=== PATIENT | male | born 1980 | race Caucasian/White ===

== ENCOUNTER 2018-04-23 07:46 | Outpatient (CLI) | payer MEDICAID | END 2018-04-23 07:47 | disposition home or self-care (01) | LOC: C.PAT 07:46 | DX: M12.532 Traumatic arthropathy, left wrist (principal); M85.432 Solitary bone cyst, left ulna and radius; M85.442 Solitary bone cyst, left hand ==

== ENCOUNTER 2018-05-06 06:19 | Day surgery (SDC) | payer MEDICAID ==
[2018-04-23 07:58] VITALS: BMI 30.4
[2018-05-06] MEDS ORDERED: Bacitracin 500 Units/gm Oint Foilpak UD ONE (07:40)
[2018-05-06] MEDS ORDERED: ceFAZolin 1 gm in NS 1 GM/100 ML BAG IVPB ONE ×2 (07:40→08:00)
[2018-05-06] MEDS ORDERED: Bupivacaine 0.25% 20 ML INJ IJ ONE (07:41)
[2018-05-06] MEDS ORDERED: Midazolam 2 MG/2 ML VIAL ONE (07:54)
[2018-05-06] MEDS ORDERED: Propofol 10 mg/ml Inj (20 ML) ONE ×2 (07:54→10:43)
[2018-05-06] MEDS ORDERED: Rocuronium 10 mg/ml (5 ml) ONE ×2 (09:24→10:39)
[2018-05-06] MEDS ORDERED: Neostigmine 1:1000 (1 mg/ml) Inj ONE (10:42)
--- NOTE | 2018-05-06 11:06 | PCM.SURG1 ---
Surgeon's Initial Post Op Note - Surgeon's Notes Surgeon: Dr. Short Production Laborer: Dr. Sabas Velasquez PGY-4 Type of Anesthesia: General Endo Pre-Operative Diagnosis: Left SLAC wrist Operative Findings: see operative report Post-Operative Diagnosis: Left SLAC wrist Operation Performed: 1) Left proximal row carpectomy 2) Bone graft for endochondroma 3) PIN neurectomy Specimen/Specimens Removed: carpal bones Estimated Blood Loss: EBL {In ML}: 10 Blood Products Given: N/A Drains Used: No Drains Post-Op Condition: Good Date of Surgery/Procedure: 05/06/18 Time of Surgery/Procedure: 11:06
[2018-05-06] MEDS: HYDROmorphone 0.5 mg/0.5 ml ISec IVP PRN ×6 (11:12→12:15)
[2018-05-06] MEDS ORDERED: HYDROmorphone 0.5 mg/0.5 ml ISec ONE (11:15)
[2018-05-06 11:26] VITALS: TEMP 98
[2018-05-06] MEDS ORDERED: HYDROmorphone 0.5 mg/0.5 ml ISec IVP PRN (12:12)
[2018-05-06] MEDS ORDERED: Ropivacaine 0.5% PF (20 ml) inj INJ ONE (12:47)
--- NOTE | 2018-05-06 13:02 | PCM.ANESB1 ---
Interscalene Block - Brachial Plexus Date of Procedure: 05/06/18 Anesthesiologist: Jeff Bernard Pre-Procedure Diagnosis: acute postoperative pain Post-Procedure Diagnosis: acute postoperative pain Procedure Performed: Interscalene Block of Brachial Plexus Left - Procedure Interscalene Block of Brachial Plexus: This procedure was explained to the patient that it is for post-operative pain management. Consent was obtained after a thorough discussion with the patient regarding the benefits and possible complications of local anesthetic block of the Brachial Plexus at the supraclavicular area Time out was held with the circulating nurse to confirm the correct surgery and appropriate block. After applying Oxygen by nasal cannula, the patient's head was gently rotated away f rom the _LEFT_operative shoulder and the anterior scalene groove was carefully palpated. The ultrasound transducer was then applied to the skin in the transverse plane and the brachial plexus was visualized lateral to supraclavicular artery After identification,the anterior lateral portion of the neck was prepped with Betadine solution three times and Lidocaine 1% was inj ected subcutaneously for topical analgesia. At this point, a # 22 gauge Stimuplex 2 inches insulated needle was inserted aboved the clavicle and directed in a caudal and midline direction. The needle was inserted lateral to the ultrasound transducer in-plane towards the brachial plexus in a [id number] direction. Needle advancement was performed carefully under direct ultrasound visualization. Nerve stimulator was used and twitched of the affected extremity including the hand brachialis muscles, biceps and the deltoid was obtained at a current of 0.6MA, lost at 0.48ma. After repeated negative aspiration,___5__cc of_0.5% ropivicaine were injected and this was followed with __15cc of __0.5_% _ropivicaine. Under ultrasound guidance the local anesthetics were observed surrounding the roots of the brachial plexus. The needle was removed intact and sterile dressing was applied. The patient had stable vital signs, was conscious and in no apparent distress. The patient tolerated the supraclavicular block of the bracheal plexus well with stable, was awake throughout and had no complaints of pain or anesthesia. arabella ated procedure well.
[2018-05-06 14:07] VITALS: PULSE 72; RESP 16; O2SAT 96
[2018-05-06 14:24] VITALS: BP 125/72
--- NOTE | 2018-05-09 19:49 | OP ---
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 PROCEDURES: 1. Left proximal row carpectomy. 2. 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 3. Neurectomy of posterior interosseous nerve. SURGEON: Melissa Short MD ELECTRIC BATH ATTENDANT: Nadine Judd M.D SECOND ELECTRIC BATH ATTENDANT: Reba Obregon, PGY-4 TYPE OF ANESTHESIA: General endotracheal anesthesia. SPECIMENS: Carpal bones, which were removed, were sent to pathology. ESTIMATED BLOOD LOSS: 10 mL. TOURNIQUET TIME: 1 hour and 55 minutes. COUNTS: Lap, sponge, and needle counts were correct at the end of the case. CONDITION: The patient was stable upon discharge to recovery. INDICATIONS FOR SURGERY: The patient is a 38-year-old man with severe wrist pain from previous injuries including scapholunate ligament that was then reconstructed. He had progressive advancement collapse with evidence of radial styloid osteophytes and severe pain, destruction of the lunate and scaphoid. The plan was for a proximal row carpectomy. DESCRIPTION OF PROCEDURE: Surgery is as follows. The patient was identified in the holding area. The left arm was marked. He was then brought to the operating room and laid supine on the operating room table. Once general anesthesia was induced, the patient's left arm was placed in a tourniquet and then prepped and draped in usual sterile fashion. Using an Esmarch, the arm was exsanguinated and tourniquet inflated to 250 mm of pressure for a total of 115 minutes. Beginning with an incision on the dorsal wrist, approximately 5 cm in length, the incision was taken down through the skin and dermis. The EPL tendon was identified and preserved. The carpal retinaculum between the third and fourth compartment was opened in order to expose the carpal bones. The intraoperative fluoroscopy was used to help guide the location of the lunate and scaphoid bones. 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 A U-based proximally based flap of the carpal retinaculum, dorsal capsule was created and elevated in order to expose the capitate, the lunate, and the scaphoid bases. The triquetral bone, the lunate, and the scaphoid bones were all removed using a combination of rongeurs and osteotomes until the area was cleared. The PIN nerve was noted running along the fourth dorsal compartment and was resected back approximately 2 cm proximal to the wrist crease. The specimen was sent as a separate specimen. The scaphoid was completely removed in pieces as well. Intraoperative fluoroscopy was then used to locate the wrist dorsally volarly, radial and ulnar. Some of the 2 mm portion of the radial styloid on the dorsal surface was then removed in order to prevent impaction of the trapezium against the radial styloid. Once the position was deemed satisfactory, one 0.45 K-wire was placed across the capitate into the K-wire to position the capitate in the lunate facet. The incision was then irrigated and again, any area of residual bone was removed. The radial styloid under the lunate facet had a fairly large enchondroma, a separate incision was made in the dorsal aspect of the radius in order to access the enchondroma. This was cleaned out and then packed with bone graft from the carpal bone segments. Under fluoroscopy, the enchondroma was morcelled and less visible after bone grafting was performed. The wounds were then closed. The dorsal capsule was repaired using 4-0 Vicryl. The tourniquet was deflated and pressure held for 5 minutes. Any bleeding was controlled with electrocautery. K-wire was buried under the skin. The incision was then closed in layers using 3-0 Monocryl to the deep dermis followed by 4-0 Monocryl running subcuticular and lastly Dermabond. The patient was then placed in a volar splint with the wrist in neutral and secured in place with an Balaji wrap. The patient tolerated the procedure well, was extubated on the table, transferred to a stretcher and brought to the recovery room. In the recovery room, he underwent a supraclavicular block. Melissa Short MD
== END 2018-05-06 14:29 | disposition home or self-care (01) ==
LOC: C.SDS 06:19
PROVIDERS: ATTEND Plastic Surgery Surgery of the Hand
DX: M12.532 Traumatic arthropathy, left wrist (principal); M85.432 Solitary bone cyst, left ulna and radius; M85.422 Solitary bone cyst, left humerus
CPT/HCPCS: 20900; 25215; 64450; 88305; 88311; C1713; J0690; J1170; J2250; J2405; J2704; J2710; J3010

== ENCOUNTER 2018-06-04 15:19 | Outpatient (CLI) | payer MEDICAID | END 2018-06-04 15:20 | disposition home or self-care (01) | LOC: C.LAB 15:19 | DX: Z01.812 Encounter for preprocedural laboratory examination (principal) ==

== ENCOUNTER 2018-06-11 07:41 | Day surgery (SDC) | payer MEDICAID ==
[2018-06-11 08:34] VITALS: TEMP 97.8
[2018-06-11] MEDS ORDERED: ceFAZolin 1 gm in NS 2 GM/200 ML BAG IVPB ONE (09:15)
[2018-06-11] MEDS ORDERED: Lidocaine Hydrochloride 0 ML INJ ONE (09:15)
[2018-06-11] MEDS ORDERED: Bupivacaine 0.25% 20 ML INJ IJ ONE (09:15)
[2018-06-11] MEDS ORDERED: Midazolam 2 MG/2 ML VIAL ONE (09:18)
[2018-06-11] MEDS ORDERED: Propofol 10 mg/ml Inj (20 ML) ONE ×2 (09:18→09:40)
[2018-06-11] MEDS ORDERED: Bacitracin 500 Units/gm Oint Foilpak UD ONE (09:19)
[2018-06-11] MEDS ORDERED: Lidocaine/Epinephrine 1% 1:100000 10 ML IJ ONE (09:22)
[2018-06-11 09:49] VITALS: BMI 30.4
--- NOTE | 2018-06-11 10:26 | PCM.SURG1 ---
Surgeon's Initial Post Op Note - Surgeon's Notes Surgeon: Dr. Short Maintenance Controller: PGY2 Type of Anesthesia: IV Sedation, Local Pre-Operative Diagnosis: Left hand arthritis Operative Findings: Wire in place, removed. for detials see op note Post-Operative Diagnosis: as above Operation Performed: 1. Removal of hardware of left hand. 2. Manipulation under anesthesia of left hand Specimen/Specimens Removed: 1. hardware Estimated Blood Loss: EBL {In ML}: 5 Drains Used: No Drains Post-Op Condition: Good Date of Surgery/Procedure: 06/11/18 Time of Surgery/Procedure: 10:25
[2018-06-11] MEDS ORDERED: Lactated Ringer's 1,000 ML IV SCH (10:30)
[2018-06-11] MEDS ORDERED: HYDROmorphone 0.5 mg/0.5 ml ISec IVP PRN (10:30)
[2018-06-11] MEDS ORDERED: Lactated Ringer's 500 ML IV ONE (11:12)
[2018-06-11 11:31] VITALS: O2SAT 100
[2018-06-11 11:41] VITALS: PULSE 56; RESP 15
[2018-06-11 13:22] VITALS: BP 132/69
--- NOTE | 2018-06-19 22:40 | OP ---
PROCEDURE DATE: 06/11/2018 SURGEON: Melissa Short MD. SENIOR SHIPPING CLERK: Vladimir Badillo DO and Nadine Judd MD PREOPERATIVE DIAGNOSIS: Left wrist buried K-wire. POSTOPERATIVE DIAGNOSIS: Left wrist buried K-wire. ANESTHESIA: Sedation. PROCEDURES: 1. Left wrist block. 2. Removal of buried K-wire across wrist joint. 3. Manipulation under anesthesia and evaluation of wrist joint with intraoperative fluoroscopy. COUNTS: Lap, sponge, and needle counts were correct at the end of the case. CONDITION: The patient was stable upon discharge to recovery. INDICATIONS FOR SURGERY: The patient is a 38-year-old male who approximately six weeks ago underwent proximal row carpectomy for most severely arthritic left wrist. He is here for removal of the buried K-wire as well as manipulation of the wrist joint after PRC procedure. DESCRIPTION OF PROCEDURE: Surgery is as follows: The patient was identified in the holding area. Left arm was marked. He was then brought to the operating room and laid supine on the operating room table. Once the anesthesia sedation was provided, the left wrist was blocked with 10 mL of 1% lidocaine and 0.5% Marcaine in a 50:50 mixture. block the median nerve, ulnar nerve, radial sensory, and ulnar sensory nerve. The arm was not exsanguinated but placed in the tourniquet and then prepped and draped in usual sterile fashion. Using intraoperative fluoroscopy, the proximal end of K-wire was localized making a 1-cm incision. The incision was taken down through skin and dermis with #15 scalpel and then tenotomy scissors were used to expose the proximal aspect of the K-wire. Wires were then used to remove the K-wire and additional 10 mL of 1% lidocaine was injected into the wrist joint and fluoroscopy was used to review the position and the mobility of the wrist joint. Using external force, the scar tissue was noted to separate and after the manipulation under anesthesia, the wrist motion improved until there was approximately 20 degrees extension with 40 degrees of flexion and there was 10 degrees of radial and ulnar deviation. The patient tolerated the procedure well. Incision was closed with a couple of 5-0 chromic fast-absorbing sutures. The incision was covered with Adaptic, Bacitracin, 4x4 gauze, and a bulky dressing was applied and secured in place with an Balaji wrap. The patient tolerated the procedure well, was transferred to stretcher, and brought to recovery room in stable condition. Melissa Short MD
== END 2018-06-11 13:23 | disposition home or self-care (01) ==
LOC: C.SDS 07:41
PROVIDERS: ATTEND Plastic Surgery Surgery of the Hand
DX: M12.532 Traumatic arthropathy, left wrist (principal)
CPT/HCPCS: 20670; J0690; J1170; J2250; J2704; J3010; J7120

== ENCOUNTER 2018-07-23 15:38 | Outpatient (CLI) | payer MEDICAID | END 2018-07-23 15:39 | disposition home or self-care (01) | LOC: C.LAB 15:38 | DX: Z01.812 Encounter for preprocedural laboratory examination (principal) ==

== ENCOUNTER 2018-08-06 07:10 | Day surgery (SDC) | payer MEDICAID ==
[2018-07-26 10:14] VITALS: BMI 33.3
[2018-08-06] MEDS ORDERED: Bupivacaine HCl 0.5% PF (10 ml) Inj ONE (09:36)
[2018-08-06] MEDS ORDERED: Lidocaine Hydrochloride 10 ML INJ ONE (09:36)
[2018-08-06] MEDS ORDERED: Triamcinolone Acetonide 40 mg/mL Inj ONE (09:42)
[2018-08-06] MEDS ORDERED: Midazolam 2 MG/2 ML VIAL ONE (09:50)
[2018-08-06] MEDS ORDERED: Propofol 10 mg/ml Inj (20 ML) ONE (09:50)
[2018-08-06] MEDS ORDERED: Oxycodone/Acetaminophen 5/325 mg Tab PO PRN (10:19)
--- NOTE | 2018-08-06 10:19 | PCM.SURG1 ---
Surgeon's Initial Post Op Note - Surgeon's Notes Surgeon: Dr. Short Religious Activities Director: Kristina pGY2 Type of Anesthesia: Block Regional, IV Sedation, Local Anesthesia Administered By: Fátima Blood CRNA Pre-Operative Diagnosis: Left wrist stiffness, arthropathy, arthritis Operative Findings: Left wrist stiffness, arthropathy, arthritis, decreased ROM Post-Operative Diagnosis: Left wrist stiffness, arthropathy, arthritis Operation Performed: Left wrist manipulation under anesthesia with kenolog injection of car tissue Specimen/Specimens Removed: N/A Estimated Blood Loss: EBL {In ML}: 1 Blood Products Given: N/A Drains Used: No Drains Post-Op Condition: Good Date of Surgery/Procedure: 08/06/18 Time of Surgery/Procedure: 10:18
[2018-08-06] MEDS ORDERED: HYDROmorphone 0.5 mg/0.5 ml ISec IVP PRN (10:26)
[2018-08-06] MEDS ORDERED: Lactated Ringer's 1,000 ML IV SCH (10:30)
[2018-08-06 11:45] VITALS: RESP 18
[2018-08-06 12:12] VITALS: BP 119/69; PULSE 63; TEMP 97.8; O2SAT 97
--- NOTE | 2018-08-11 02:55 | OP ---
PROCEDURE DATE: 08/06/2018 PREOPERATIVE DIAGNOSES: Left wrist stiffness, arthroscopy, and arthritis. POSTOPERATIVE DIAGNOSIS: Left wrist stiffness, arthroscopy, and arthritis. ANESTHESIA: Sedation. PROCEDURES: 1. Regional block by operating surgeon. 2. Manipulation of wrist joint under anesthesia. 3. X-ray guided intraoperative lidocaine injection. 4. Injection of Kenalog along the scar on the dorsum. SURGEON: Melissa Short MD ORTHOPEDIC DESIGNER: Jacek Acevedo DO, PGY-2 COUNTS: Lap, sponge, and needle counts were correct at the end of the case. CONDITION: The patient was stable upon discharge to recovery. INDICATIONS FOR SURGERY: The patient is a 38-year-old male who underwent a proximal carpectomy in April. He has been in PT; however, he has stiffness to his wrist in flexion and extension. He also has significant scarring and decision was made to bring him to the operating room to do a manipulation under direct fluoroscopy and steroid injection of the scar. DESCRIPTION OF PROCEDURE: As follows; the patient was identified in the holding area. The left arm was marked. He was then brought to the operating room and laid supine on the operating room table. Once sedation was provided, the left wrist was blocked with 20 mL of 1% lidocaine, 0.5% Marcaine in a 50:50 mixture, 10 mL will be used to block the median nerve, ulnar nerve, radial sensory, and ulnar sensory nerves at the level of the wrist. In addition, using a fluoroscopy, the carpal radial joint was accessed, and an additional 10 mL of lidocaine and Marcaine was injected into the joint space. The patient's hand was then manipulated under anesthesia. There was audible tearing of scar tissue. There is wrist extension which was 5 degrees, increased to 45 degrees. Wrist flexion went from 0 to approximately 15 degrees. Radial and ulnar deviations were 10 degrees in either direction. A 1 mL of Kenalog was injected directly into the scar tissue along the dorsum of the wrist in multiple locations. Intraoperative fluoroscopy was used then to verify the maximum flexion and extension. There was no instability to the proximal carpectomy surgery. The bone graft for his enchondromas in the distal radius has healed, filled in well, and there is no evidence of further enchondromas present. At the conclusion, the arm was cleaned and placed in an Balaji wrap. The patient tolerated the procedure well. He was transferred to a stretcher and brought to the recovery room in stable condition. Melissa Short MD
== END 2018-08-06 12:15 | disposition home or self-care (01) ==
LOC: C.SDS 07:10
PROVIDERS: ATTEND Plastic Surgery Surgery of the Hand
DX: M19.032 Primary osteoarthritis, left wrist (principal)
CPT/HCPCS: 25259; 64450; J1170; J2250; J2704; J3010; J3301